=== PATIENT | female | born 1980 | race Native Hawaiian/Other Pacific Islander ===

== ENCOUNTER 2020-08-25 15:42 | Outpatient (CLI) | payer BC, OTHER | END 2020-08-25 22:23 | disposition home or self-care (01) | LOC: INF 15:42 | PROVIDERS: ATTEND Internal Medicine | DX: Z23 Encounter for immunization (principal) | CPT/HCPCS: 96372 ==

== ENCOUNTER 2020-09-16 15:26 | Outpatient (CLI) | payer BC, OTHER | END 2020-09-16 22:25 | disposition home or self-care (01) | LOC: INF | PROVIDERS: ATTEND Internal Medicine | DX: Z23 Encounter for immunization (principal) | CPT/HCPCS: 96372 ==